=== PATIENT | male | born 1995 | race African-American/Black ===

== ENCOUNTER 2020-05-19 14:16 | Emergency (ER) | payer OTHER ==
[~2020-05-19] VITALS: Ht 167.6 cm; Wt 70.3 kg
== END 2020-05-19 19:57 | disposition home or self-care (01) ==
LOC: ER 14:16
DX: S13.8XXA Sprain of joints and ligaments of other parts of neck, initial encounter (principal); S00.03XA Contusion of scalp, initial encounter; S40.012A Contusion of left shoulder, initial encounter; W18.09XA Striking against other object with subsequent fall, initial encounter; Y93.89 Activity, other specified; Y92.59 Other trade areas as the place of occurrence of the external cause; Y99.8 Other external cause status

== ENCOUNTER 2020-05-20 05:15 | Emergency (ER) | payer OTHER ==
[~2020-05-20] VITALS: Ht 167.6 cm; Wt 74.4 kg
== END 2020-05-20 06:51 | disposition home or self-care (01) ==
LOC: ER 05:15
DX: S63.8X2A Sprain of other part of left wrist and hand, initial encounter (principal); W18.2XXA Fall in (into) shower or empty bathtub, initial encounter; Y93.89 Activity, other specified; Y92.59 Other trade areas as the place of occurrence of the external cause; Y99.8 Other external cause status